=== PATIENT | female | born 1995 | race Two or more races ===

== ENCOUNTER 2022-12-31 21:26 | Emergency (ER) | payer BC ==
[~2022-12-31] VITALS: Ht 170.2 cm; Wt 54.4 kg
[2022-12-31] MEDS ORDERED: ALDACTONE25 MG (22:13)
[2023-01-01] MEDS ORDERED: ONDANSETRON ODT4 MG PO (05:19)
[2023-01-01] MEDS ORDERED: PEPCID40 MG PO (05:19)
== END 2023-01-01 05:32 | disposition home or self-care (01) ==
LOC: ER 21:26
DX: K52.89 Other specified noninfective gastroenteritis and colitis (principal); I10 Essential (primary) hypertension